=== PATIENT | male | born 1965 | race Caucasian/White ===

== ENCOUNTER 2020-12-05 07:37 | Observation (INO) ==
[2020-12-05] MEDS ORDERED: Isovue-370 500 ML BOTTLE IVP ONE (08:33)
[2020-12-05 09:13] LABS: INR 1.1; Prothrombin Time 11.9 Seconds (9.4-12.1)
[2020-12-05 09:15] LABS: Activated Partial Thrombo Time 25.9 Seconds (26.0-36.0)
[2020-12-05 09:22] LABS: % Iron Saturation 18 % (20-55); Alanine Aminotransferase 7 Units/L (7-52); Albumin 3.1 g/dL (3.5-5.7); Alkaline Phosphatase 59 Units/L (34-104); Aspartate Amino Transferase 15 Units/L (13-39); BUN/Creatinine Ratio 12 (6-26); Bilirubin,Direct 0.3 mg/dL (0.0-0.2); Bilirubin,Indirect 1.1 mg/dL (0.0-1.0); Bilirubin,Total 1.4 mg/dL (0.3-1.0); Blood Urea Nitrogen 9 mg/dL (6-20); Calcium 8.4 mg/dL (8.6-10.3); Carbon Dioxide 26 mEq/L (23-29); Chloride 103 mEq/L (98-107); Globulin 3.2 g/dL (2.4-3.5); Glucose 96 mg/dL (70-105); Iron 59 mcg/dL (65-175); Osmolality,Calculated 273 (280-300); Potassium 4.3 mEq/L (3.5-5.1); Sodium 132 mEq/L (136-145); Total Protein 6.3 g/dL (6.4-8.9); Transferrin 236 mg/dL (203-362); eGFR For African Americans > 60 (> 60); eGFR For Non-African Americans > 60 (> 60)
[2020-12-05 09:57] LABS: Basophils % 0.7 %; Eosinophils % 0.7 %; Hematocrit 24.3 % (37.5-50.1); Hemoglobin 8.1 g/dL (12.9-16.9); Immature Granulocytes % 0.4 % (0-4); Lymphocytes # 0.6 K/mcL (0.6-4.6); Mean Corpuscular HGB Conc 33.3 g/dL (31.6-35.5); Mean Corpuscular Hemoglobin 36.3 pg (28.0-33.3); Mean Platelet Volume 9.1 fL (9.4-12.4); Monocytes # 0.3 K/mcL (0.0-1.3); Monocytes % 9.3 %; Neutrophils # 1.8 K/mcL (1.6-8.9); Platelet Count 184 K/mcL (140-400); Red Blood Count 2.23 M/mcL (4.19-5.50); Red Cell Distribution Width 17.3 % (11.5-14.5); Segmented Neutrophils % 65.9 %; White Blood Count 2.7 K/mcL (4.3-11.1)
[2020-12-05 12:01] LABS: Folate 5.1 ng/mL (3.0-16.0)
[2020-12-05 12:57] LABS: C-Reactive Protein 6 mg/L (Less than 10); Creatine Kinase 32 Units/L (30-223)
[2020-12-05] MEDS ORDERED: Cyanocobalamin (B-12) 1,000 MCG TABLET PO STA (13:03)
[2020-12-05] MEDS ORDERED: Ondansetron 4 MG/2 ML VIAL IVP PRN (15:34)
[2020-12-05] MEDS ORDERED: Acetaminophen 325 MG TABLET PO PRN (15:34)
[2020-12-05] MEDS ORDERED: Naloxone 0.4 MG/ML INJ IVP PRN (15:34)
[2020-12-05] MEDS ORDERED: Gadolinium Contrast Agent (WT Based) IV PRN (16:02)
[2020-12-05] MEDS ORDERED: *HR* LORazepam 2 MG/ML VIAL IVP PRN ×3 (16:05)
[2020-12-05] MEDS ORDERED: Cyanocobalamin (B-12) 1,000 MCG/ML VIAL SQ ONE (19:31)
[2020-12-05] MEDS ORDERED: *HR* OxyCODONE Immed Rel 5 MG TABLET PO PRN (19:32)
[2020-12-05] MEDS: Thiamine (B-1) 100 MG, Folic Acid 1 MG, MVI, adult with vitamin K 10 ML in 0.9 % Sodi... IVPB SCH (19:47)
[2020-12-05] MEDS: Gabapentin 300 MG CAPSULE PO SCH (21:31)
[2020-12-05] MEDS: *HR* LORazepam 0.5 MG TABLET PO SCH (21:31)
[2020-12-06 04:14] LABS: Immature Granulocytes % 0.5 % (0-4); Mean Platelet Volume 9.2 fL (9.4-12.4)
[2020-12-06 04:16] LABS: Basophils % 0.5 %; Hematocrit 22.3 % (37.5-50.1); Hemoglobin 7.3 g/dL (12.9-16.9); Lymphocytes # 0.7 K/mcL (0.6-4.6); Lymphocytes % 34.8 %; Mean Corpuscular HGB Conc 32.7 g/dL (31.6-35.5); Mean Corpuscular Hemoglobin 35.3 pg (28.0-33.3); Mean Corpuscular Volume 107.7 fL (83.0-100.0); Monocytes # 0.2 K/mcL (0.0-1.3); Monocytes % 8.6 %; Neutrophils # 1.1 K/mcL (1.6-8.9); Platelet Count 200 K/mcL (140-400); Red Blood Count 2.07 M/mcL (4.19-5.50); Red Cell Distribution Width 16.7 % (11.5-14.5); Segmented Neutrophils % 53.6 %
[2020-12-06 04:30] LABS: Albumin 2.7 g/dL (3.5-5.7); Bilirubin,Direct 0.4 mg/dL (0.0-0.2); Bilirubin,Indirect 0.9 mg/dL (0.0-1.0); Bilirubin,Total 1.3 mg/dL (0.3-1.0); Globulin 2.8 g/dL (2.4-3.5); Total Protein 5.5 g/dL (6.4-8.9)
[2020-12-06 04:31] LABS: BUN/Creatinine Ratio 14 (6-26); Blood Urea Nitrogen 10 mg/dL (6-20); Calcium 7.9 mg/dL (8.6-10.3); Carbon Dioxide 23 mEq/L (23-29); Chloride 106 mEq/L (98-107); Glucose 98 mg/dL (70-105); Magnesium 2.1 mg/dL (1.6-2.6); Osmolality,Calculated 277 (280-300); Sodium 134 mEq/L (136-145); eGFR For African Americans > 60 (> 60); eGFR For Non-African Americans > 60 (> 60)
[2020-12-06 04:51] LABS: Heparin anti-factor XA UFH < 0.04 IU/mL (0.30-0.70)
[2020-12-06 04:52] LABS: Activated Partial Thrombo Time 29.4 Seconds (26.0-36.0); INR 1.1
[2020-12-06] MEDS: Gabapentin 300 MG CAPSULE PO SCH ×3 (08:09→20:35)
[2020-12-06] MEDS: *HR* LORazepam 0.5 MG TABLET PO SCH ×3 (08:09→20:35)
[2020-12-06 12:56] LABS: Hematocrit 24.2 % (37.5-50.1)
[2020-12-06] MEDS: Cyanocobalamin (B-12) 1,000 MCG/ML VIAL SQ SCH (16:03)
[2020-12-06] MEDS: Thiamine (B-1) 100 MG, Folic Acid 1 MG, MVI, adult with vitamin K 10 ML in 0.9 % Sodi... IVPB SCH (17:15)
[2020-12-06 18:38] LABS: Hematocrit 24.1 % (37.5-50.1); Hemoglobin 8.1 g/dL (12.9-16.9)
[2020-12-07 04:02] LABS: Basophils % 0.8 %; Eosinophils # 0.1 K/mcL (0.0-0.6); Eosinophils % 2.5 %; Hemoglobin 7.7 g/dL (12.9-16.9); Mean Corpuscular HGB Conc 33.5 g/dL (31.6-35.5); Mean Corpuscular Hemoglobin 36.2 pg (28.0-33.3); Mean Platelet Volume 9.1 fL (9.4-12.4); Monocytes # 0.2 K/mcL (0.0-1.3); Monocytes % 9.2 %; Neutrophils # 1.1 K/mcL (1.6-8.9); Platelet Count 221 K/mcL (140-400); Red Blood Count 2.13 M/mcL (4.19-5.50); Red Cell Distribution Width 16.4 % (11.5-14.5); Segmented Neutrophils % 47.5 %; White Blood Count 2.4 K/mcL (4.3-11.1)
[2020-12-07 04:12] LABS: BUN/Creatinine Ratio 17 (6-26); Blood Urea Nitrogen 10 mg/dL (6-20); Calcium 7.8 mg/dL (8.6-10.3); Carbon Dioxide 24 mEq/L (23-29); Chloride 104 mEq/L (98-107); Glucose 99 mg/dL (70-105); Osmolality,Calculated 273 (280-300); Phosphorous 3.1 mg/dL (2.7-4.5); Sodium 132 mEq/L (136-145); eGFR For African Americans > 60 (> 60); eGFR For Non-African Americans > 60 (> 60)
[2020-12-07 04:14] LABS: Albumin 2.8 g/dL (3.5-5.7); Bilirubin,Direct 0.3 mg/dL (0.0-0.2); Bilirubin,Indirect 0.8 mg/dL (0.0-1.0); Bilirubin,Total 1.1 mg/dL (0.3-1.0); Globulin 2.8 g/dL (2.4-3.5); Total Protein 5.6 g/dL (6.4-8.9)
[2020-12-07 04:24] LABS: Platelet Estimate Normal (Normal); Reactive Lymphocytes Present (Not Present)
[2020-12-07] MEDS: Gabapentin 300 MG CAPSULE PO SCH ×3 (08:19→20:43)
[2020-12-07] MEDS: *HR* LORazepam 0.5 MG TABLET PO SCH ×2 (08:19→14:18)
[2020-12-07] MEDS: Cyanocobalamin (B-12) 1,000 MCG/ML VIAL SQ SCH (08:19)
[2020-12-07] MEDS ORDERED: Cyanocobalamin (B-12) 1,000 MCG TABLET PO SCH (09:00)
[2020-12-07] MEDS ORDERED: Aspirin Enteric Coated 81 MG Tablet PO SCH (09:00)
[2020-12-07] MEDS ORDERED: Gadolinium Contrast Agent (WT Based) IV PRN (10:03)
[2020-12-07] MEDS ORDERED: GADOBUTROL 30 MMOL/30 ML VIAL IVP ONE (11:42)
[2020-12-07] MEDS ORDERED: *HR* LORazepam 0.5 MG TABLET PO PRN (15:16)
[2020-12-07] MEDS: Thiamine (B-1) 100 MG, Folic Acid 1 MG, MVI, adult with vitamin K 10 ML in 0.9 % Sodi... IVPB SCH (17:26)
[2020-12-07 21:27] LABS: Hepatitis B Surface Antigen Nonreactive (Nonreactive)
[2020-12-07 21:57] LABS: Hepatitis B Core IgM Nonreactive (Nonreactive)
[2020-12-07 21:58] LABS: Hepatitis A Antibody IgM Nonreactive (Nonreactive)
[2020-12-08 03:28] LABS: Hematocrit 24.1 % (37.5-50.1); Hemoglobin 7.8 g/dL (12.9-16.9)
[2020-12-08 05:48] LABS: HIV-1&2 Antibody & p24 Ag Nonreactive (Nonreactive)
[2020-12-08 05:50] LABS: Hepatitis C Virus Antibody Reactive (Nonreactive)
[2020-12-08] MEDS: Cyanocobalamin (B-12) 1,000 MCG/ML VIAL SQ SCH (08:23)
[2020-12-08] MEDS: Gabapentin 300 MG CAPSULE PO SCH (08:23)
[2020-12-08 10:30] VITALS: BP 103/64; PULSE 88; TEMP 98.3; O2SAT 99
[2020-12-10 03:12] LABS: APTT (LE Anticoag) 41 sec (32-48); Diluted Russell Viper Venom 31 sec (33-44); PT (LE-Anticoag) 13.6 sec (12.0-15.5)
[2020-12-12] MEDS ORDERED: Cyanocobalamin (B-12) 1,000 MCG TABLET PO SCH (09:00)
== END 2020-12-08 15:03 | disposition home or self-care (01) ==
LOC: 3ANU 07:37 → EMEROOARM 07:37 → SUATTDRO 18:53 → 3ANU 20:35
PROVIDERS: ADMIT Pharmacist; ATTEND Internal Medicine